=== PATIENT | female | born 1975 | race Two or more races ===

== ENCOUNTER 2023-12-27 07:23 | Outpatient (CLI) | payer OTHER | END 2023-12-27 07:27 | disposition home or self-care (01) | LOC: NUCLEAR 07:23 | DX: R10.13 Epigastric pain (principal); R11.10 Vomiting, unspecified ==

== ENCOUNTER 2024-01-07 08:30 | Outpatient (CLI) | payer OTHER | END 2024-01-07 08:35 | disposition home or self-care (01) | LOC: TOM 08:30 | DX: R19.4 Change in bowel habit (principal); K59.02 Outlet dysfunction constipation ==